=== PATIENT | female | born 1965 | race Caucasian/White ===

== ENCOUNTER → 2024-02-18 10:15 | Outpatient (REF) | payer OTHER, SELFPAY | LOC: HWRAD 10:15 | PROVIDERS: ATTENDING PHYSICIAN Physician Assistant Medical | DX: K76.89 Other specified diseases of liver (principal) | CPT/HCPCS: 76700 ==

== ENCOUNTER → 2024-07-12 11:13 | Outpatient (REF) | payer BC, SELFPAY | LOC: WDC 11:13 | PROVIDERS: ATTENDING PHYSICIAN Obstetrics & Gynecology Gynecology; FAMILY PHYSICIAN Physician Assistant Medical | DX: Z12.31 Encounter for screening mammogram for malignant neoplasm of breast (principal) | CPT/HCPCS: 77063; 77067 ==

== ENCOUNTER → 2024-08-09 10:05 | Outpatient (REF) | payer BC, SELFPAY | LOC: RAD 10:05 | PROVIDERS: ATTENDING PHYSICIAN Physician Assistant Medical | DX: Z00.00 Encounter for general adult medical examination without abnormal findings (principal) | CPT/HCPCS: 77080 ==

== ENCOUNTER → 2024-11-29 13:37 | Outpatient (REF) | payer BC, SELFPAY | LOC: WDC 13:37 | PROVIDERS: ATTENDING PHYSICIAN Obstetrics & Gynecology Gynecology; FAMILY PHYSICIAN Physician Assistant Medical | DX: R92.2 Inconclusive mammogram (principal); Z80.3 Family history of malignant neoplasm of breast | CPT/HCPCS: 76641 ==

== ENCOUNTER → 2025-02-21 12:53 | Outpatient (REF) | payer BC, SELFPAY | LOC: RCS 12:53 | PROVIDERS: ATTENDING PHYSICIAN Internal Medicine; FAMILY PHYSICIAN Physician Assistant Medical | DX: R00.2 Palpitations (principal) | CPT/HCPCS: 93017 ==

== ENCOUNTER → 2025-02-24 15:22 | Outpatient (REF) | payer BC, SELFPAY | LOC: RCS 15:22 | PROVIDERS: ATTENDING PHYSICIAN Internal Medicine; FAMILY PHYSICIAN Physician Assistant Medical | DX: R00.2 Palpitations (principal) | CPT/HCPCS: 93306 ==

== ENCOUNTER → 2025-03-01 12:08 | Outpatient (REF) | payer BC, SELFPAY | LOC: HWRAD 12:08 | PROVIDERS: ATTENDING PHYSICIAN Physician Assistant Medical | DX: D17.71 Benign lipomatous neoplasm of kidney (principal) | CPT/HCPCS: 76770 ==

== ENCOUNTER 2025-03-03 13:59 | Emergency (ER) | payer BC, SELFPAY ==
[2025-03-03 14:08] VITALS: BP 127/72
[2025-03-03 15:08] VITALS: BP 118/74; BMI 21.5
[2025-03-03 15:47] LABS: % Basophils 0.8 % (0-2); % Immature Granulocytes 0.4 % (0-0.5); % Monocytes 7.4 % (1.7-9.3); % Neutrophils 67.4 % (42.2-75.2); Absolute Eosinophils 0.1 10^3/uL (0-0.7); Absolute Lymphocytes 1.2 10^3/uL (1.2-3.4); Absolute Monocytes 0.4 10^3/uL (0.1-0.6); Absolute Neutrophils 3.5 10^3/uL (1.4-6.5); Hematocrit 39.2 % (37.0-47.0); Hemoglobin 13.2 g/dL (12.0-16.0); Mean Corp Hgb Conc. 33.7 g/dL (33.0-37.0); Mean Corpuscular Hgb 31.6 pg (27.0-31.0); Mean Corpuscular Volume 93.8 fL (81.0-99.0); Mean Platelet Volume 10.3 fL (7.4-10.4); Nucleated Red Blood Cells % 0 %; Platelet Count 212 10^3/uL (130-400); Red Blood Cell Count 4.18 10^6/uL (4.20-5.40); Red Cell Dist. Width 12.3 % (11.5-14.5); White Blood Cell Count 5.1 10^3/uL (4.8-10.8)
[2025-03-03 16:00] LABS: ALT (SGPT) 18 U/L (0-35); AST (SGOT) 21 U/L (14-36); Albumin 4.4 g/dl (3.5-5.0); Alkaline Phosphatase 53 U/L (38-126); Blood Urea Nitrogen 18 mg/dl (7-17); Calcium 9.4 mg/dl (8.4-10.2); Carbon Dioxide 27 mmol/L (22-30); Chloride 105 mmol/L (98-107); Estimated Creatinine Clearance 96 ml/min; Glucose 96 mg/dl (70-99); Potassium 4.1 mmol/L (3.5-5.1); Sodium 140 mmol/L (135-145); Total Protein 6.5 g/dl (6.3-8.2); eGFR > 60.00
[2025-03-03 16:11] LABS: Troponin I < 0.012 ng/ml
--- NOTE | 2025-03-03 16:24 | ED.GENMED ---
History of Present Illness
General
Chief Complaint: Chest Pain
Time Seen by Provider: 03/03/25 14:38
History of Present Illness
History of Present Illness:
59-year-old female presents the emergency department for evaluation of intermittent sharp chest pains occurring over the course of today first beginning at 5 AM. No obvious exertional pain. No associated fevers or chills. No pain at present.
Recently worked up as an outpatient by cardiology with echo and stress test
Review of Systems
Review of Systems
Allergies reviewed?: Yes
All Other Systems: ROS reviewed and negative except as documented in HPI and ROS
Phy Exam
Physical Exam
Physical Exam:
GEN: Well appearing, NAD, WDWN
HEENT: Oral mucosa moist, no scleral icterus
Cardiac: Regular rate and rhythm, no murmurs
Lung: No respiratory distress, no tachypnea
MSK: No gross deformity or injuries
Skin: Good color, no pallor or jaundice, no rashes
Neuro: AO x3, moves all extremities freely
Psych: Calm, cooperative
Scores
Heart Score for Chest Pain Patients
STEMI patient?: No
History: Slightly or Non-Suspicious
ECG: Normal
Age: >45 - <65 years
Risk Factors: No Risk Factors
Troponin: </= Normal Limit
Heart Score for Chest Pain Patients: 1
Heart Score Risk: 2.5% MACE over next 6 weeks
Course
Orders/Labs/Results
Orders:
Orders
03/03/25 14:00
EKG [Electrocardiogram (*1)] Urgent
Reason for Study: Chest Pain
EKG- Treatment ONCE
03/03/25 15:35
Complete Blood Count/With Diff Urgent
Comprehensive Metabolic Panel Urgent
Troponin I Urgent
03/03/25 16:55
CR Chest - 2 Views Urgent
Comment:
Reason For Exam: chest pain
Abnormal Lab Results
03/03/25
15:35
RBC 4.18 L 10^6/uL
(4.20-5.40)
MCH 31.6 H pg
(27.0-31.0)
BUN 18 H mg/dl
(7-17)
03/03/25 15:35
03/03/25 15:35
Vital Signs
Initial and Last Documented VS:
Initial Vital Signs
Temp Pulse Resp BP Pulse Ox
97.5 F 62 16 127/72 100
03/03/25 14:08 03/03/25 14:08 03/03/25 14:08 03/03/25 14:08 03/03/25 14:08
Last Documented Vital Signs
Temp Pulse Resp BP Pulse Ox
97.5 F 57 15 118/74 100
03/03/25 14:08 03/03/25 15:30 03/03/25 15:30 03/03/25 15:08 03/03/25 15:30
MDM/Problems Addressed
MDM/Problems Addressed:
Workup is reassuring, likely musculoskeletal etiology
*Critical Care Note
Total Time (30-74mins, 75-104mins- exclusive of procedures): Not Applicable
ED Attending Note
-
Portions of this chart may have been created with voice recognition software.� Occasional wrong word or��sound alike� substitutions may have occurred due to the inherent limitations of voice recognition software.
Discharge Plan
Departure
Patient Disposition: Home (Routine Discharge)
Date of Disposition: 03/03/25
Time of Disposition: 16:25
Patient with high blood pressure during this ER visit?: No
Discharge Problem:
Atypical chest pain
Instructions: Chest Pain That Is Not Caused by the Heart (DC)
Referrals:
Crystal Gerard PA-C [Family Provider] -
Interventions
Interventions:
*Risk Screen - Suicide Last Done: 03/03/25 14:08
*General Assessment Last Done: 03/03/25 14:08
*Neglect/Abuse Screening Last Done: 03/03/25 14:08
*ED- Fall Risk Assessment Last Done: 03/03/25 14:08
*ED COVID-19 Vaccine History Last Done: 03/03/25 14:08
ED- Cardiac Assessment Last Done: 03/03/25 15:39
Discharge Date and Time
Print Language: YI
[2025-03-03 16:47] VITALS: BP 110/58
== END 2025-03-03 16:55 | disposition home or self-care (01) ==
LOC: EMR 13:59
PROVIDERS: Physician Assistant; EMERGENCY PHYSICIAN Student in an Organized Health Care Education/Training Program; FAMILY PHYSICIAN Physician Assistant Medical
DX: R07.89 Other chest pain (principal)
CPT/HCPCS: 99285; 71046; 80053; 84484; 85025; 93005

== ENCOUNTER → 2025-05-10 07:14 | Outpatient (REF) | payer BC, SELFPAY | LOC: HWRAD 07:14 | PROVIDERS: ATTENDING PHYSICIAN Specialist; FAMILY PHYSICIAN Physician Assistant Medical | DX: K76.89 Other specified diseases of liver (principal) | CPT/HCPCS: 76700 ==

== ENCOUNTER → 2025-05-25 13:20 | Outpatient (REF) | payer BC, SELFPAY | LOC: HWRAD 13:20 | PROVIDERS: ATTENDING PHYSICIAN Physician Assistant Medical | DX: R20.2 Paresthesia of skin (principal); R41.89 Other symptoms and signs involving cognitive functions and awareness; R51.9 Headache, unspecified; Z82.3 Family history of stroke; I47.10 Supraventricular tachycardia, unspecified; I35.1 Nonrheumatic aortic (valve) insufficiency | CPT/HCPCS: 70450 ==

== ENCOUNTER → 2025-06-04 08:16 | Outpatient (REF) | payer BC, SELFPAY | LOC: PAVMRI 08:16 | PROVIDERS: ATTENDING PHYSICIAN Physician Assistant Medical | DX: R20.2 Paresthesia of skin (principal); R41.89 Other symptoms and signs involving cognitive functions and awareness; R51.9 Headache, unspecified; Z82.3 Family history of stroke; R90.82 White matter disease, unspecified | CPT/HCPCS: 70551 ==

== ENCOUNTER 2025-06-16 06:26 | Day surgery (SDC) | payer BC, SELFPAY | END 2025-06-16 14:17 | disposition home or self-care (01) | LOC: GI 06:26 | PROVIDERS: ATTENDING PHYSICIAN Specialist | DX: Z12.11 Encounter for screening for malignant neoplasm of colon (principal); D12.5 Benign neoplasm of sigmoid colon; K59.00 Constipation, unspecified; K22.89 Other specified disease of esophagus; R07.89 Other chest pain; Z86.0101 Personal history of adenomatous and serrated colon polyps | CPT/HCPCS: 45380; 43239; 88305 ==

== ENCOUNTER → 2025-07-13 12:21 | Outpatient (REF) | payer BC, SELFPAY | LOC: WDC 12:21 | PROVIDERS: ATTENDING PHYSICIAN Physician Assistant Medical | DX: Z12.31 Encounter for screening mammogram for malignant neoplasm of breast (principal) | CPT/HCPCS: 77063; 77067 ==